=== PATIENT | male | born 1950 | race Native Hawaiian/Other Pacific Islander ===

== ENCOUNTER 2020-05-05 02:47 | Emergency (ER) | payer OTHER, MEDICARE ==
[~2020-05-05] VITALS: Ht 182.9 cm; Wt 113.4 kg
[2020-05-05 02:47] VITALS: BP 104/67; TEMP 98.4
[2020-05-05 03:39] LABS: POTASSIUM 4.3 mmol/L (3.6-5.2)
[2020-05-05 03:53] LABS: PLATELET COUNT 175 K/uL (142-355)
[2020-05-05] MEDS ORDERED: ISOS30TA17 PO (05:12)
[2020-05-05] MEDS ORDERED: CO Q10100 MG PO (05:12)
[2020-05-05] MEDS ORDERED: OMEP40CA PO (05:13)
[2020-05-05] MEDS ORDERED: COZAAR100 MG PO (05:13)
[2020-05-05] MEDS ORDERED: CRESTOR5 MG PO (05:14)
[2020-05-05] MEDS ORDERED: VITAMIN D32000 UNIT PO (05:15)
[2020-05-05] MEDS ORDERED: CITALOPRAM HYDR10 MG PO (05:15)
[2020-05-05] MEDS ORDERED: ELIQUIS5 MG PO (05:16)
[2020-05-05] MEDS ORDERED: METO25TA4 PO (05:17)
[2020-05-05] MEDS ORDERED: SEROQUEL100 MG PO (05:17)
[2020-05-05] MEDS ORDERED: HALOPERIDOL2 MG PO (05:18)
[2020-05-05] MEDS ORDERED: SEROQUEL50 MG PO (05:18)
[2020-05-05] MEDS ORDERED: LOPERAMIDE2 MG PO (05:19)
[2020-05-05] MEDS ORDERED: TRAMADOL HYDROC50 MG PO (05:19)
[2020-05-05] MEDS ORDERED: KETO10TA34 PO (05:20)
[2020-05-05] MEDS ORDERED: DIVA250T PO (05:21)
[2020-05-05] MEDS ORDERED: LORA0.5T17 PO (05:22)
== END 2020-05-05 04:56 | disposition other institution (70) ==
LOC: ED 02:53
PROVIDERS: General Practice
DX: F03.91 Unspecified dementia, unspecified severity, with behavioral disturbance (principal); Z87.898 Personal history of other specified conditions; Z11.59 Encounter for screening for other viral diseases; Z04.6 Encounter for general psychiatric examination, requested by authority
CPT/HCPCS: 36415; 80053; 85027; 87635; 93005; 99283; 99285; G2023; U00003